=== PATIENT | male | born 1940 | race Caucasian/White ===

== ENCOUNTER 2017-01-14 11:43 | Emergency (ER) | payer MEDICARE, OTHER ==
[~2017-01-14] VITALS: Ht 177.8 cm; Wt 90.7 kg
[~2017-01-14 11:43] MED LIST: AUGMENTIN 875-1 EACH PO; FLOMAX 0.4MG C0.4 MG PO; GABAPENTIN300 MG PO; LEVOTHYROXINE0.1 MG PO; NEXIUM40 MG PO; NORCO 325 MG-51 TAB PO; SUMATRIPTAN SUC25 MG PO; ZOFRAN ODT4 MG PO
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
[2017-01-14] MEDS ORDERED: FLONASE 50 MCG16 GM (12:47)
[2017-01-14] MEDS ORDERED: MEDROL 4MG. DOSE4 MG PO (12:47)
[2017-01-14] MEDS ORDERED: ZITHROMAX Z PA250 MG PO (12:47)
[2017-01-14] MEDS ORDERED: TESSALON PERLE100 M1 PO (12:47)
[2017-01-14 12:49] VITALS: BP 122/67
--- OUTSIDE RECORDS SUMMARY | 2017-01-19 18:33 | External Medical Summary Rpt | CCD ---
Author Author [employer] Address Unknown Phone Purpose Continuity of Care Document - through 2016
--- OUTSIDE RECORDS SUMMARY | 2017-01-19 18:33 | External Medical Summary Rpt ---
Author Author [employer] Escalante, [employer] Organization [employer] Address Unknown Phone Unavailable
--- OUTSIDE RECORDS SUMMARY | 2017-01-19 18:33 | External Medical Summary Rpt | CCD ---
Demographics Preferred Language Irish Marital Status Unknown [employer] Affiliation Unknown Race Unknown Ethnic Group Unknown Author Author , [employer] GUERRERO Address Unknown Phone Immunization No patient found.
--- OUTSIDE RECORDS SUMMARY | 2017-01-19 18:33 | External Medical Summary Rpt | CCD ---
Demographics Preferred Language Icelandic Marital Status Unknown Cheondoism Affiliation Unknown Race Unknown Ethnic Group Unknown Author Author , [employer] GUERRERO Address Unknown Phone Immunization No patient found.
--- OUTSIDE RECORDS SUMMARY | 2017-01-19 18:33 | External Medical Summary Rpt | CCD ---
Author Author [employer] Organization [employer] Address Unknown Phone Unavailable Purpose Continuity of Care Document - through 2016
== END 2017-01-14 12:51 | disposition home or self-care (01) ==
LOC: UTC 11:43
DX: J06.9 Acute upper respiratory infection, unspecified (principal); K21.9 Gastro-esophageal reflux disease without esophagitis; E03.9 Hypothyroidism, unspecified